=== PATIENT | female | born 1990 | race Caucasian/White ===

== ENCOUNTER 2019-06-22 23:57 | Emergency (ER) | payer OTHER, SELFPAY ==
[2019-06-23] VITALS: BP 150/103; PULSE 98; RESP 18; O2SAT 99
[2019-06-23 00:07] VITALS: BP 150/103; PULSE 114; RESP 20; TEMP 36.4; O2SAT 98
--- NOTE | 2019-06-23 00:23 | ED.GENADULT ---
HPI - General Adult General Chief complaint: Abdominal Pain Stated complaint: severe abdominal pain nausea Time Seen by Provider: 06/23/19 00:12 Source: patient Mode of arrival: Ambulatory Limitations: no limitations History of Present Illness HPI narrative: 28-year-old female here for evaluation of abdominal pain. States that her symptoms have been going on for the past several days but worsened over the past 24 hours. She has had constipation in the past. She took some MiraLax and Colace today. Stated that she had a normal bowel movement after that earlier this evening. She also started her menstrual cycle today. States the pain is in her upper abdomen. She has a known hiatal hernia. Has had GI bleeds in the past. Patient is also had DVTs and PE secondary to a knee surgery. She is not currently on anticoagulation. No fevers. No chest pain. No urinary symptoms. Related Data Previous Rx's Medication Instructions Recorded ondansetron 4 mg PO Q6H PRN #10 tab 06/23/19 Review of Systems Constitutional Constitutional: Denies fever(s) Cardiovascular Cardiovascular: Denies chest pain and Denies dyspnea Respiratory Respiratory: Denies dyspnea Gastrointestinal Gastrointestinal: Reports abdominal pain, Reports constipation and Reports nausea Genitourinary Genitourinary: Denies dysuria Musculoskeletal Musculoskeletal: Denies myalgias and Denies arthralgias Integumentary/Breasts Skin/Breast: Denies lesions and Denies rash Neurologic Neurologic: Denies behavioral changes Psychiatric Psychiatric: Denies behavioral changes Hematologic/Lymphatic Hematologic/Lymphatic: Denies easy bleeding and Denies easy bruising Allergic/Immunologic Allergic/Immunologic: Denies urticaria Patient History Medical History DVT (deep venous thrombosis) (Acute) GI bleed (Acute) Hiatal hernia (Acute) Pulmonary embolism (Acute) Social History Smoking Status: Never smoker alcohol intake frequency: holidays/special occasions only Substance Use Type: does not use Exam Initial Vital Signs Initial Vital Signs: Vital Signs Pulse Rate 98 H 06/23/19 00:00 Respiratory Rate 18 06/23/19 00:00 Blood Pressure 150/103 H 06/23/19 00:00 Pulse Oximetry 99 06/23/19 00:00 Const General: cooperative, comfortable and well developed Orientation: alert, awake and oriented x3 HENMT Head: normal to inspection and normocephalic Resp Effort & Inspection: normal respiratory effort Auscultation: clear to auscultation bilaterally Cardio Rate: regular rate Rhythm: regular rhythm GI Inspection: non-distended Palpation: soft, No firm and tender (Diffuse upper abdominal tenderness) Back/Spine/Pelvis Back: No CVA tenderness Skin Lesions: no lesions Rashes: no rashes Neuro General: alert and awake Cognition: normal cognition Speech: speech normal Extrem General: normal to inspection and capillary refill normal Psych Appearance: grossly normal and well kempt Course Orders Ordered: ED Orders 06/23/19 00:25 CT abdomen pelvis w con Stat 06/23/19 00:42 Complete Blood Count AUTO DIFF Stat Comprehensive Metabolic Panel Stat Lipase Stat Test Serum,Qual Stat 06/23/19 02:05 Urinalysis and Microscopic Stat Discontinued Medications Sodium Chloride (Normal Saline 0.9%) 1,000 mls @ 1,000 mls/hr IV BOLUS ONE Stop: 06/23/19 01:11 Last Infusion: 06/23/19 01:56 Dose: 1,000 mls/hr Documented by: Admin: 06/23/19 00:29 Dose: 1,000 mls/hr Documented by: MORENO Morphine Sulfate (Morphine) 2 mg IV NOW ONE Stop: 06/23/19 00:25 Last Admin: 06/23/19 00:29 Dose: 2 mg Documented by: MORENO Morphine Sulfate (Morphine) 2 mg IV NOW ONE Stop: 06/23/19 00:52 Last Admin: 06/23/19 01:26 Dose: 2 mg Documented by: MORENO Ondansetron HCl (Zofran) 4 mg IV NOW ONE Stop: 06/23/19 00:25 Last Admin: 06/23/19 00:30 Dose: 4 mg Documented by: MORENO Vital Signs Vital signs: Vital Signs - 8 hr 06/23/19 00:00 06/23/19 00:07 06/23/19 00:30 Temperature 97.6 F Pulse Rate 98 H 114 H 99 H Respiratory Rate 18 20 18 Blood Pressure 150/103 H Blood Pressure [Right Arm] 150/103 H 143/84 H Pulse Oximetry 99 98 100 06/23/19 01:16 Temperature Pulse Rate 98 H Respiratory Rate 16 Blood Pressure Blood Pressure [Right Arm] 132/85 Pulse Oximetry 100 Medical Decision Making Lab Data Lab results reviewed: Yes I reviewed the patient's lab results. Result diagrams: 06/23/19 00:42 06/23/19 00:42 Labs: Lab Results 06/23/19 06/23/19 06/23/19 Range/Units 00:42 00:42 00:42 WBC 9.8 (4.5-11.0) X10^3/uL RBC 4.22 (4.0-5.2) X10^6/uL Hgb 13.8 (12.0-16.0) g/dL Hct 39.4 (36-46) % MCV 93.4 (80-100) fL MCH 32.7 (26-34) PG MCHC 35.0 (30-36) % RDW 12.0 (11.6-14.8) % Plt Count 287 (150-400) X10^3/uL Neut % (Auto) 74.3 (50-75) % Lymph % (Auto) 19.1 L (25-40) % [place] % (Auto) 4.6 (3-14) % Eos % (Auto) 1.7 L (2-4) % Baso % (Auto) 0.3 (0-2) % Neut # (Auto) 7300 H (9499-0581) /uL Lymph # (Auto) 1900 (0639-3988) /uL [place] # (Auto) 500 (0-900) /uL Eos # (Auto) 200 (0-450) /uL Baso # (Auto) 0 (0-100) /uL Sodium 139 (137-145) mmol/L Potassium 4.0 (3.4-5.1) mmol/L Chloride 104 (98-107) mmol/L Carbon Dioxide 26 (22-32) mmol/L BUN 10 (7-17) mg/dL Creatinine 1.00 (0.52-1.04) mg/dL Estimated GFR > 60.0 (>60) mL/min BUN/Creatinine Ratio 10.0 (6-22) Glucose 121 H (70-100) mg/dL Calcium 9.8 (8.4-10.2) mg/dL Total Bilirubin 0.7 (0.2-1.3) mg/dL AST 31 (14-36) IU/L ALT 32 (<35) IU/L Alkaline Phosphatase 69 (38-126) U/L Total Protein 7.9 (6.3-8.2) g/dL Albumin 4.6 (3.5-5.0) g/dL Globulin 3.3 (1.7-4.1) g/dL Albumin/Globulin Ratio 1.4 (1.0-2.8) Lipase 126 (23-300) U/L Serum , Qual Negative (Negative) Urine Color Urine Appearance Urine pH (4.5-8.0) Ur Specific [place] (1.000-1.035) Urine Protein (Negative) Urine Glucose (UA) (Negative) g/dL Urine Ketones (NEGATIVE) Urine Occult Blood (Negative) Urine Nitrate (Negative) Urine Bilirubin (NEGATIVE) Urine Urobilinogen (0.2) E.U./dL Ur Leukocyte Esterase (NEGATIVE) Urine RBC (0-5/HPF) Urine WBC (0-5/HPF) Urine Bacteria (None) Ur Culture Indicated? 06/23/19 Range/Units 02:05 WBC (4.5-11.0) X10^3/uL RBC (4.0-5.2) X10^6/uL Hgb (12.0-16.0) g/dL Hct (36-46) % MCV (80-100) fL MCH (26-34) PG MCHC (30-36) % RDW (11.6-14.8) % Plt Count (150-400) X10^3/uL Neut % (Auto) (50-75) % Lymph % (Auto) (25-40) % [place] % (Auto) (3-14) % Eos % (Auto) (2-4) % Baso % (Auto) (0-2) % Neut # (Auto) (1489-0416) /uL Lymph # (Auto) (2675-6953) /uL [place] # (Auto) (0-900) /uL Eos # (Auto) (0-450) /uL Baso # (Auto) (0-100) /uL Sodium (137-145) mmol/L Potassium (3.4-5.1) mmol/L Chloride (98-107) mmol/L Carbon Dioxide (22-32) mmol/L BUN (7-17) mg/dL Creatinine (0.52-1.04) mg/dL Estimated GFR (>60) mL/min BUN/Creatinine Ratio (6-22) Glucose (70-100) mg/dL Calcium (8.4-10.2) mg/dL Total Bilirubin (0.2-1.3) mg/dL AST (14-36) IU/L ALT (<35) IU/L Alkaline Phosphatase (38-126) U/L Total Protein (6.3-8.2) g/dL Albumin (3.5-5.0) g/dL Globulin (1.7-4.1) g/dL Albumin/Globulin Ratio (1.0-2.8) Lipase (23-300) U/L Serum , Qual (Negative) Urine Color Reddish brown Urine Appearance Cloudy Urine pH 7.0 (4.5-8.0) Ur Specific [place] <=1.005 (1.000-1.035) Urine Protein Negative (Negative) Urine Glucose (UA) Negative (Negative) g/dL Urine Ketones Negative (NEGATIVE) Urine Occult Blood 3+ H (Negative) Urine Nitrate Negative (Negative) Urine Bilirubin Negative (NEGATIVE) Urine Urobilinogen 0.2 (0.2) E.U./dL Ur Leukocyte Esterase Negative (NEGATIVE) Urine RBC >100/hpf H (0-5/HPF) Urine WBC 0-1/hpf (0-5/HPF) Urine Bacteria None seen (None) Ur Culture Indicated? Cult not indicated Imaging Data CT scan - abdomen: Radiologist's impression: Suspect enteritis of the jejunum. Nondilated colon. No free intraperitoneal air or fluid MDM Narrative Medical decision making narrative: Patient did have abdominal pain and it is upper abdomen. Her lipase and LFTs are unremarkable. Gallbladder unremarkable on the CT scan. I do have low suspicion for gallbladder pathology. test negative. No signs UTI. Low suspicion for pyelonephritis. Appendix is normal in the CT scan. Does have enteritis of the jejunum. This could also explain her back pain. No recent antibiotic use. No indication for antibiotics currently. We did discuss the importance stay away from opioid medications in order to decrease the issues with constipation she expressed understanding of this. She can use Tylenol. We did discuss return precautions and follow-up instructions. No indication for surgical consultation. She expressed understanding and agreement plan. Her pain is upper abdomen. Low suspicion for pelvic organ issues. Discharge Plan Departure Patient Disposition: Home Clinical Impression: Enteritis Abdominal pain Qualifiers: Abdominal location: upper abdomen, unspecified Qualified Code(s): R10.10 - Upper abdominal pain, unspecified Instructions: DI for Abdominal Pain-Adult, DI for Enteritis Activity Restrictions/Additional Instructions: Recommend that you eat a bland diet. Drink plenty of fluids. Use the nausea medication as needed. Return to the emergency department for any new or worsening symptoms Prescriptions: New ondansetron 4 mg tablet,disintegrating 4 mg PO Q6H PRN (Reason: nausea and vomiting) Qty: 10 RF: 0
--- NOTE | 2019-06-23 00:25 | DI.CT.S_ITS ---
PROCEDURE: CT ABDOMEN PELVIS W CON INDICATIONS: Generalized abdominal pain TECHNIQUE: After the administration of intravenous contrast, 5 mm thick sections acquired from the diaphragm to the symphysis. 5 mm coronal and sagittal reformats were acquired. For radiation dose reduction, the following was used: automated exposure control, adjustment of mA and/or kV according to patient size. COMPARISON: None. FINDINGS: Image quality: Excellent. ABDOMEN: Lung bases: Lung bases are clear. Heart size is normal. Solid organs: Liver is normal in size and enhancement. Regional fatty liver infiltration can be seen. Gallbladder wall does not appear thickened. Biliary system is non dilated. Pancreas enhances normally. Spleen is normal in size and enhancement. Small accessory splenules are seen along the medial and anterior aspects of the spleen. No adrenal nodules. Kidneys demonstrate normal size and enhancement, without hydronephrosis. Incidental note is made of a circumaortic left renal vein. Peritoneum and bowel: There is prominent and hyper enhancement seen of the jejunum, with loops measuring up to 2.9 cm. The remainder of the small bowel demonstrates an unremarkable appearance. The colon is collapsed, limiting its evaluation. No free fluid or air. A normal appendix is seen, as on series 2 image 66. Nodes and vessels: No retroperitoneal or mesenteric adenopathy by size criteria. Aorta and inferior vena cava are normal in size. Miscellaneous: No ventral hernias. PELVIS: Genitourinary: Bladder wall thickness is normal. Miscellaneous: No inguinal hernias or adenopathy. Bones: No suspicious bony lesions. No vertebral body compression fractures. S-shaped scoliotic curvature is seen. L5 pars defects are seen, with associated minimal grade 1 anterolisthesis. IMPRESSION: Likely focal inflammation of the jejunum. No findings of perforation or abscess can be seen. Normal appendix. Incidental note is made of: Regional fatty liver infiltration Accessory splenules Circumaortic left renal vein S-shaped scoliotic curvature Minimal L5-S1 anterolisthesis with associated L5 pars defects Note: No significant discrepancy from the preliminary report. Dictated by: Rafael Maya M.D. on 06/23/2019 at 8:16 Approved by: Rafael Maya M.D. on 06/23/2019 at 8:21
[2019-06-23] MEDS: SODIUM CHLORIDE 0.9% 1,000 ML 1000 ML IV (00:29)
[2019-06-23] MEDS: MORPHINE 2 MG/ML INJ IV ×2 (00:29→01:26)
[2019-06-23 00:30] VITALS: BP 143/84; PULSE 99; RESP 18; O2SAT 100
[2019-06-23] MEDS: ONDANSETRON 4 MG/2 ML INJ IV (00:30)
[2019-06-23 00:54] LABS: Add Manual Diff / Slide Review NO; Basophils Absolute Auto 0 /uL (0-100); Basophils Percent Auto 0.3 % (0-2); Eosinophils Absolute Auto 200 /uL (0-450); Eosinophils Percent Auto 1.7 % (2-4); Hematocrit 39.4 % (36-46); Hemoglobin 13.8 g/dL (12.0-16.0); Lymphocytes Absolute Auto 1900 /uL (1100-4500); Lymphocytes Percent Auto 19.1 % (25-40); Mean Corpuscular Hemoglobin 32.7 PG (26-34); Mean Corpuscular Volume 93.4 fL (80-100); Monocytes Absolute Auto 500 /uL (0-900); Monocytes Percent Auto 4.6 % (3-14); Neutrophils Absolute Auto 7300 /uL (1500-7000); Neutrophils Percent Auto 74.3 % (50-75); Platelet Count 287 X10^3/uL (150-400); Red Blood Cell Count 4.22 X10^6/uL (4.0-5.2); White Blood Cell Count 9.8 X10^3/uL (4.5-11.0)
[2019-06-23 01:01] LABS: Alanine Aminotransferase 32 IU/L (<35); Albumin 4.6 g/dL (3.5-5.0); Albumin Globulin Ratio 1.4 (1.0-2.8); Alkaline Phosphatase 69 U/L (38-126); Aspartate Aminotransferase 31 IU/L (14-36); Bilirubin Total 0.7 mg/dL (0.2-1.3); Blood Urea Nitrogen 10 mg/dL (7-17); Calcium 9.8 mg/dL (8.4-10.2); Carbon Dioxide 26 mmol/L (22-32); Chloride 104 mmol/L (98-107); Estimated Glomerular Filt Rate > 60.0 mL/min (>60); Globulin 3.3 g/dL (1.7-4.1); Glucose 121 mg/dL (70-100); HEMOLYSIS < 15 (0-50); Lipase 126 U/L (23-300); Sodium 139 mmol/L (137-145); Total Protein 7.9 g/dL (6.3-8.2)
[2019-06-23 01:07] LABS: Pregnancy Test Serum,Qual Negative (Negative)
[2019-06-23 01:16] VITALS: BP 132/85; PULSE 98; RESP 16; O2SAT 100
[2019-06-23 02:08] LABS: Bacteria Urine None Seen
[2019-06-23 02:11] LABS: Bilirubin Urine UA NEGATIVE (NEGATIVE); Glucose Urine UA NEGATIVE (Negative); Ketones Urine UA NEGATIVE (NEGATIVE); Leukocyte Esterase Urine UA NEGATIVE (NEGATIVE); Nitrite Urine UA NEGATIVE (Negative); Occult Blood Urine UA 3+ (Negative); Protein Urine UA NEGATIVE (Negative); Specific Gravity Urine UA <=1.005 (1.000-1.035); Urobilinogen Urine UA 0.2 E.U./dL (0.2)
[2019-06-23 02:14] LABS: Appearance Urine UA CLOUDY; Color Urine UA REDDISH BROWN
[2019-06-23 02:22] LABS: Culture Indicated Urine Cult Not Indicated; RBC Urine >100/HPF (0-5/HPF); WBC Urine 0-1/HPF (0-5/HPF)
[2019-06-23] MEDS: ONDANSETRON 4 MG ODT PREPACK 1 BOTTLE MISC (03:10)
[2019-06-23 03:11] VITALS: BP 127/84; PULSE 67; RESP 13; O2SAT 100
[2019-06-23] MEDS: TRAMADOL 50 MG PREPACK 1 BOTTLE MISC (03:11)
== END 2019-06-23 03:11 | disposition home or self-care (01) ==
PROVIDERS: Emergency Provider Emergency Medicine
DX: K52.9 Noninfective gastroenteritis and colitis, unspecified (principal); R10.10 Upper abdominal pain, unspecified
CPT/HCPCS: 36415; 74177; 80053; 81001; 83690; 84703; 85025; 96361; 96374; 96375; 96376; 99283; 99284; J2270; J2405; Q9967

== ENCOUNTER 2020-11-24 09:34 | Emergency (ER) | payer OTHER, SELFPAY ==
--- NOTE | 2020-11-24 09:46 | ED_ITS ---
HPI - General Adult General Chief complaint: Extremity Problem,Nontraumatic Stated complaint: right leg numbness post csection,hx of dvt Time Seen by Provider: 11/24/20 09:41 Source: patient Mode of arrival: Ambulatory Limitations: no limitations History of Present Illness HPI narrative: Patient is a 30-year-old female. Does have a history of DVT/PE. Was released yesterday from an outside facility after being admitted for a C- section. She has been on heparin since the start of her . Prior to her she completed the 6 month course of Coumadin and had not been on anticoagulation for some time. She comes to the emergency department today for evaluation of numbness to the inside of her right leg. She states this is how her prior DVT presented itself. She states that she did have a CT scan performed 2 days ago for chest discomfort and shortness of breath but was found that she was anemic. She stated there were no PEs at that time. She does not think that her chest pain or shortness of breath now our any different than that. She received a blood transfusion because of the anemia. Related Data Previous Rx's Medication Instructions Recorded ondansetron 4 mg PO Q6H PRN #10 tab 06/23/19 tramadol [Ultram] 50 mg PO Q6H PRN #7 tab 06/23/19 Allergies Allergy/AdvReac Type Severity Reaction Status Date / Time enoxaparin [From Lovenox] Allergy Verified 11/24/20 10:14 Review of Systems Constitutional Constitutional: Denies fatigue and Denies fever(s) Eyes Eyes: Denies change in vision ENT Ears, Nose, Mouth, and Throat: Denies sore throat Cardiovascular Cardiovascular: Reports chest pain and Reports dyspnea Respiratory Respiratory: Reports dyspnea Gastrointestinal Gastrointestinal: Reports abdominal pain (Postoperative pain) and Denies vomiting Genitourinary Genitourinary: Denies dysuria Genitourinary: Denies dysuria Musculoskeletal Musculoskeletal: Denies arthralgias Integumentary/Breasts Skin/Breast: Denies rash Neurologic Comments: Right leg numbness Psychiatric Psychiatric: Denies anxiety Endocrine Endocrine: Denies fatigue Hematologic/Lymphatic On Anticoagulants: Yes Allergic/Immunologic Allergic/Immunologic: Denies urticaria Patient History Medical History (Updated 11/24/20 @ 11:17 by Aubrey Perez DO) DVT (deep venous thrombosis) GI bleed Hiatal hernia Pulmonary embolism Social History Smoking Status: Never smoker Smoking Status: Never smoker alcohol intake frequency: holidays/special occasions only Substance Use Type: does not use Exam Initial Vital Signs Initial Vital Signs: Vital Signs Temperature 97.9 F 11/24/20 10:00 Pulse Rate 94 H 11/24/20 10:00 Respiratory Rate 16 11/24/20 10:00 Blood Pressure 166/104 H 11/24/20 10:00 Pulse Oximetry 99 11/24/20 10:00 Const General: cooperative, comfortable and well developed Limitations: mental status not altered HENMT Head: normal to inspection and normocephalic Eyes General: appearance normal, both eyes and all related structures Resp Effort & Inspection: normal respiratory effort Auscultation: clear to auscultation bilaterally Cardio Rate: regular rate Rhythm: regular rhythm GI Palpation: soft and tender (Lower abdomen) Skin Lesions: no lesions Rashes: no rashes Neuro Cognition: normal cognition Speech: speech normal Gait: normal gait Other: Decreased sensation to the inside of her right leg compared to the left to light touch. Extrem General: normal to inspection, capillary refill normal and No edema Psych Appearance: grossly normal and well kempt Course Orders Ordered: ED Orders 11/24/20 09:52 EKG-12 Lead Stat 11/24/20 09:55 Basic Metabolic Panel Stat Complete Blood Count AUTO DIFF Stat 11/24/20 09:59 perip venous low extrem rt Stat Vital Signs Vital signs: Vital Signs - 8 hr 11/24/20 10:00 11/24/20 10:26 11/24/20 10:30 Temperature 97.9 F Pulse Rate 94 H 96 H 97 H Respiratory Rate 16 14 25 H Blood Pressure 166/104 H 136/82 Pulse Oximetry 99 99 99 Medical Decision Making Lab Data Lab results reviewed: Yes I reviewed the patient's lab results. Result diagrams: 11/24/20 09:55 11/24/20 09:55 Labs: Lab Results 11/24/20 11/24/20 Range/Units 09:55 09:55 WBC 6.8 (4.5-11.0) X10^3/uL RBC 2.99 L (4.0-5.2) X10^6/uL Hgb 9.9 L (12.0-16.0) g/dL Hct 28.7 L (36-46) % MCV 96.0 (80-100) fL MCH 33.1 (26-34) PG MCHC 34.5 (30-36) % RDW 14.7 (11.6-14.8) % Plt Count 211 (150-400) X10^3/uL Neut % (Auto) 73.1 (50-75) % Lymph % (Auto) 20.6 L (25-40) % [place] % (Auto) 4.1 (3-14) % Eos % (Auto) 1.6 L (2-4) % Baso % (Auto) 0.6 (0-2) % Neut # (Auto) 4900 (5346-5878) /uL Lymph # (Auto) 1400 (5162-7983) /uL [place] # (Auto) 300 (0-900) /uL Eos # (Auto) 100 (0-450) /uL Baso # (Auto) 0 (0-100) /uL Sodium 138 (137-145) mmol/L Potassium 3.7 (3.4-5.1) mmol/L Chloride 106 (98-107) mmol/L Carbon Dioxide 26 (22-32) mmol/L BUN 13 (7-17) mg/dL Creatinine 0.90 (0.52-1.04) mg/dL Estimated GFR > 60.0 (>60) mL/min BUN/Creatinine Ratio 14.4 (6-22) Glucose 106 H (70-100) mg/dL Calcium 9.5 (8.4-10.2) mg/dL Imaging Data US - DVT: Radiologist's Impression: [address] [id number] ReportSigned Patient: Marilia Mckeon EMR#: [id number]: 1990Acct:[id number]/Sex: 30 / FDate of Service: 11/24/20Loc: EDAccession Number: [id number] Procedure: US periph venous low extrem rt Ordering Provider: Aubrey Perez D.O. PROCEDURE: US PERIPH VENOUS LOW EXTREM RT INDICATIONS: Eval for DVT TECHNIQUE: Real-time imaging, as well as color and pulse Doppler interrogation, were performed of the lower extremity deep veins from the inguinal ligament to the popliteal fossa. COMPARISON: None. FINDINGS: The common femoral, femoral and popliteal veins are normally compressible, and free of intraluminal thrombus. Color and pulse Doppler demonstrate normal phasic intraluminal flow. There is normal augmentation response to distal compression maneuver. IMPRESSION: No sonographic evidence of DVT. Dictated by: Eliazar Monteiro M.D. on 11/24/2020 at 10:55 Approved by: Eliazar Monteiro M.D. on 11/24/2020 at 10:56 ECG Data Attestation: I personally reviewed and interpreted this ECG as follows: Prior ECG tracings: not available for review Interpretation: Sinus rhythm Ventricular rate 90 Normal axis Normal QRS Normal QTC No ST T wave changes MDM Narrative Medical decision making narrative: Patient is vascularly intact. Right lower extremity DVT ultrasound is negative. She has low risk for this because she is on heparin. I have low suspicion for PE given her presenting symptoms today and her prior workups. Suspect that her numbness and tingling is related to the C- section. I discussed this with her. Feel patient be safely discharged home without further workup. She was given return precautions. She expressed understanding and agreement. Discharge Plan Departure Patient Disposition: Home Clinical Impression: Paresthesias Instructions: DI for Numbness/Tingling Activity Restrictions/Additional Instructions: Your blood counts and lower extremity DVT ultrasound are all very reassuring. Recommend you continue all of the post instructions given to you by your OB provider. Keep all of your scheduled medical appointments. Return to the emergency department for any new or worsening symptoms. Prescriptions: No Action ondansetron 4 mg tablet,disintegrating 4 mg PO Q6H PRN (Reason: nausea and vomiting) Qty: 10 RF: 0 tramadol [Ultram] 50 mg tablet 50 mg PO Q6H PRN (Reason: pain) Qty: 7 RF: 0 Referrals: Aziza Zapata PA-C [Primary Care Provider] -
--- NOTE | 2020-11-24 09:59 | DI.US.S_ITS ---
PROCEDURE: US PERIPH VENOUS LOW EXTREM RT INDICATIONS: Eval for DVT TECHNIQUE: Real-time imaging, as well as color and pulse Doppler interrogation, were performed of the lower extremity deep veins from the inguinal ligament to the popliteal fossa. COMPARISON: None. FINDINGS: The common femoral, femoral and popliteal veins are normally compressible, and free of intraluminal thrombus. Color and pulse Doppler demonstrate normal phasic intraluminal flow. There is normal augmentation response to distal compression maneuver. IMPRESSION: No sonographic evidence of DVT. Dictated by: Eliazar Monteiro M.D. on 11/24/2020 at 10:55 Approved by: Eliazar Monteiro M.D. on 11/24/2020 at 10:56
[2020-11-24 10:00] VITALS: BP 166/104; PULSE 94; RESP 16; TEMP 36.6; O2SAT 99; BMI 36.6
[2020-11-24 10:16] LABS: BUN Creatinine Ratio 14.4 (6-22); Blood Urea Nitrogen 13 mg/dL (7-17); Calcium 9.5 mg/dL (8.4-10.2); Carbon Dioxide 26 mmol/L (22-32); Chloride 106 mmol/L (98-107); Estimated Glomerular Filt Rate > 60.0 mL/min (>60); Glucose 106 mg/dL (70-100); HEMOLYSIS < 15 (0-50); Potassium 3.7 mmol/L (3.4-5.1); Sodium 138 mmol/L (137-145)
[2020-11-24 10:21] LABS: Add Manual Diff / Slide Review NO; Basophils Absolute Auto 0 /uL (0-100); Basophils Percent Auto 0.6 % (0-2); Eosinophils Absolute Auto 100 /uL (0-450); Eosinophils Percent Auto 1.6 % (2-4); Hematocrit 28.7 % (36-46); Hemoglobin 9.9 g/dL (12.0-16.0); Lymphocytes Absolute Auto 1400 /uL (1100-4500); Lymphocytes Percent Auto 20.6 % (25-40); Mean Corpuscular HGB Conc 34.5 % (30-36); Mean Corpuscular Hemoglobin 33.1 PG (26-34); Monocytes Absolute Auto 300 /uL (0-900); Monocytes Percent Auto 4.1 % (3-14); Neutrophils Absolute Auto 4900 /uL (1500-7000); Neutrophils Percent Auto 73.1 % (50-75); Platelet Count 211 X10^3/uL (150-400); Red Blood Cell Count 2.99 X10^6/uL (4.0-5.2); Red Cell Distribution Width 14.7 % (11.6-14.8); White Blood Cell Count 6.8 X10^3/uL (4.5-11.0)
[2020-11-24 10:26] VITALS: PULSE 96; RESP 14; O2SAT 99
[2020-11-24 10:30] VITALS: BP 136/82; PULSE 97; RESP 25; O2SAT 99
[2020-11-24 11:00] VITALS: BP 127/76; PULSE 84; RESP 19; O2SAT 98
== END 2020-11-24 11:24 | disposition home or self-care (01) ==
PROVIDERS: Emergency Provider Emergency Medicine; PCP Physician Assistant
DX: R20.2 Paresthesia of skin (principal); R07.9 Chest pain, unspecified; R06.00 Dyspnea, unspecified
CPT/HCPCS: 36415; 80048; 85025; 93005; 93971; 99284

== ENCOUNTER → 2021-09-21 12:51 | Outpatient (CLI) | payer OTHER, SELFPAY ==
--- NOTE | 2021-09-21 12:53 | DI.MRI.S_ITS ---
BREAST MRI OF BOTH BREASTS: 09/21/2021 CLINICAL: Family history. Mastodynia. TECHNIQUE: The patient was placed prone in a dedicated breast imaging coil. Precontrast axial STIR and 3D FLASH without fat saturation sequences were obtained. Both before and after bolus injection of contrast, sequential 1-minute axial 3D FLASH with fat saturation sequences for 3 time points, with subtraction images and maximum intensity projections (MIP's) generated. Delayed sagittal FLASH images with fat saturation were also obtained. Computer-aided detection, including computer algorithm analysis of MRI image data for lesion detection and characterization, pharmacokinetic analysis, with further physician review for interpretation, was performed. COMPARISON: None. Image quality: Diagnostic. There is mild background parenchymal enhancement. Right breast: No mass, non-mass enhancement, or architectural distortion. No skin or nipple abnormalities. No internal mammary or axillary chain adenopathy. Left breast: No mass, non-mass enhancement, or architectural distortion. No skin or nipple abnormalities. No internal mammary or axillary chain adenopathy. Miscellaneous: Visualized portions of the chest and upper abdomen are unremarkable. IMPRESSION: NEGATIVE 1. No MRI evidence for malignancy in the right breast. 2. No MRI evidence for malignancy in the left breast. 3. No MRI abnormalities identified to explain patient's history of mastodynia. Recommend continued clinical surveillance and follow-up imaging as indicated. COMMENT: The imaging literature indicates that a negative contrast breast MRI examination has a high sensitivity and a moderate specificity for detecting and excluding invasive carcinomas to a detection threshold of 3-5 mm; nonetheless, appropriate clinical and mammographic follow-up are recommended. MRI is not sensitive for detecting DCIS (ductal carcinoma in situ) and may not detect large invasive neoplasms that show only minimal enhancement such as mucinous carcinoma. If there are suspicious calcifications or clinically worrisome palpable masses, then biopsy should still be considered. Invasive neoplasms can be hidden by co-existent and benign enhancement caused by mastitis, hormone therapy effects, radiation therapy, , and recent biopsy or surgery. False positive examinations can occur in a number of circumstances, including breasts that have recently been subject to invasive procedures and those that contain atypical ductal hyperplasia, hormonally stimulated glandular tissue, fat necrosis, or radial scars. This exam was interpreted at Station ID: [id number]. Electronically Signed By: Jonathan Banuelos M.D. aty/:09/22/2021 08:30:26 ACR BI-RADS Category 1: Negative [id number]
== END ==
PROVIDERS: PCP Physician Assistant; Referring Provider Surgery; Visit Provider Surgery
DX: N64.4 Mastodynia (principal); N63.31 Unspecified lump in axillary tail of the right breast; Z84.81 Family history of carrier of genetic disease
CPT/HCPCS: 77049; A9579